=== PATIENT | male | born 1980 | race Hispanic/Latino ===

== ENCOUNTER 2022-05-03 07:36 | Day surgery (SDC) | payer OTHER ==
[2022-05-02 11:07] LABS: Potassium 4.1 mmol/L (3.5-5.1)
[2022-05-03] MEDS ORDERED: Ringers Lactate 1,000 ML IV ONE (07:54)
[2022-05-03] MEDS ORDERED: CEFAZOLIN SODIUM 2 GM/VIAL ONE (07:54)
[2022-05-03] MEDS ORDERED: MIDAZOLAM HCL 2 MG/2 ML INJ ONE (08:35)
[2022-05-03] MEDS ORDERED: FENTANYL CITR 100 MCG/2 ML ONE ×2 (08:35→09:33)
[2022-05-03] MEDS ORDERED: ROCURONIUM 50 MG/5 ML VIAL IV ONE ×2 (08:35→09:34)
[2022-05-03] MEDS ORDERED: LIDOCAINE 1% MPF 5 ML VIAL ONE (08:35)
[2022-05-03] MEDS ORDERED: propofoL 200 MG/20 ML VIAL IV ONE (08:35)
[2022-05-03] MEDS ORDERED: BUPIVACAINE 0.25% PF 30 ML VIAL ONE (08:50)
[2022-05-03] MEDS ORDERED: NS 0.9% VIAL 10 ML ONE (08:58)
[2022-05-03] MEDS ORDERED: KETOROLAC 30 MG/ML INJ ONE (09:20)
[2022-05-03] MEDS ORDERED: ONDANSETRON 4 MG/2 ML VIAL ONE ×2 (09:30→11:49)
[2022-05-03] MEDS ORDERED: GLYCOPYRROLATE 0.2 MG/ML SYR ONE ×2 (10:05→10:06)
[2022-05-03] MEDS ORDERED: NEOSTIGMINE 1 MG/ML -5 ML ONE (10:06)
--- NOTE | 2022-05-03 10:11 | P.OP ---
Preoperative diagnosis: Incarcerated Umbilical Hernia Postoperative diagnosis: Incarcerated Umbilical Hernia Primary procedure: Laparoscopic Umbilical Hernia Repair with mesh Anesthesia: GETA + Local Estimated blood loss: <5cc Specimen: none Findings: incarcerated omental adipose Complications: None Implants: Ventralite ST 11.4cm Round, sorbafix Transferred to: Recovery Room Condition: Good
[2022-05-03] MEDS ORDERED: HYDROMORPHONE HCL 1 MG/ML INJ ONE (10:35)
[2022-05-03] MEDS: FENTANYL CITR 100 MCG/2 ML ONE ×2 (10:48→10:53)
[2022-05-03 11:20] VITALS: BP 143/75; TEMP 97.1; O2SAT 97
[2022-05-03] MEDS ORDERED: HYDROCODONE/APAP 10/325 TAB ONE (11:49)
--- NOTE | 2022-05-03 13:00 | EKG ---
Test Date: 2022-05-02 Test Time: 10:38:12 Sourcer: MALINI MEASUREMENT RESULTS: Intervals: Rate: 58 TX: 184 QRSD: 98 QT: 404 QTc: 396 [place]: P: 53 TX: 184 QRS: 96 T: 60 INTERPRETIVE STATEMENTS: Sinus bradycardia with sinus arrhythmia Rightward axis Borderline ECG No previous ECG available for comparison Electronically Signed On 05-03-22 12:59:33 [employer]ATRE IN[employer]CTOR by Cheko Sethi
--- NOTE | 2022-05-03 18:32 | OP ---
Date of Procedure: 05/03/2022 Surgeon: Leno Chiu MD, Preoperative Diagnosis: Incarcerated umbilical hernia. Postoperative Diagnosis: Incarcerated umbilical hernia. Procedure Performed: Laparoscopic umbilical hernia repair with mesh. Anesthesia: General endotracheal plus local with 0.25% Marcaine. Estimated Blood Loss: Less than 5 cc. Specimen: None. Findings: Incarcerated omental adipose tissue. Complications: None. Implants: Bard Ventralight ST 11.4 cm round mesh with balloon deployment system and SorbaFix absorba ble fixation tacks, 45 utilized. Disposition: The patient was transferred to recovery room in good condition. Procedure In Detail: After informed consent was obtained, patient was prepped and draped in the usua l sterile fashion. After adequate anesthesia was achieved, an area on the left lower quadrant was an esthetized with 0.25% Marcaine and sharply incised. A 5 mm trocar was placed under direct visualizat ion without evidence of any complication. Insufflation was obtained to 15 mmHg at this time. There was no injury to vital structures upon entry into the abdomen. At this point, I inspected and found that the hernia was incarcerated omentum pushing up to the umbilical position. At this point, I anes thetized skin area on the left mid abdomen, incised and placed a 12 mm trocar under direct visualizat ion without evidence of any complication. The patient was then rotated slightly away and insufflatio n was decreased slightly. I brought the Endo Stitch with a 0 V-Loc suture and closed the hernia defe ct, imbricating the sac in a running fashion with good apposition of the tissues. At this point, I t hen sized the defect and found it to be approximately 5 cm in size. As such, I used an 11.4 cm round Bard Ventralight ST mesh with Echo Positioning System in the abdomen, deployed the balloon system ce ntrally over the defect and used a SorbaFix absorbable fixation tack to secure the mesh circumferenti ally around in a single crown at this point. I then removed the balloon deployment system and placed an additional crown of SorbaFix fixation tacks. The balloon deployment system was found to be intac t and all counts were correct at the end of the procedure. The mesh was in good position at the end of the procedure. I then rotated the patient slightly away and closed the 12 mm trocar site using a Giovany-Niru suture passer with 0 Vicryl in interrupted fashion with good approximation tissues. The abdomen was completely desufflated under direct visualization without evidence of any complicatio n. All skin sites were then copiously irrigated and closed with 4-0 Monocryl in running fashion and Dermabond placed over top. The patient tolerated the procedure without evidence of any complication and transferred to PACU in good condition. All counts were correct at the end of the case. ANABEL/LEA Voice ID: [id number] Report ID: [id number]
== END 2022-05-03 12:38 | disposition home or self-care (01) ==
LOC: OR 07:36
PROVIDERS: ATTEND Surgery
PROC: 0WUF4JZ Supplement Abdominal Wall with Synthetic Substitute, Percutaneous Endoscopic Approach (ICD-10-PCS; principal; 2022-05-03 09:15)
DX: K42.0 Umbilical hernia with obstruction, without gangrene (principal)
CPT/HCPCS: 93005; 80048; 36415; 49653; J2704; J2001; J2250; J3010 ×3; A4216; J1170; J2710; J7120; J2405 ×2; C1781